=== PATIENT | female | born 1950 | race Caucasian/White ===

== ENCOUNTER → 2020-04-19 | Outpatient (CLI) | payer OTHER ==
[~2020-04-19] MED LIST: AMARYL4 MG PO; AMITRIPTYLINE H25 M2 PO; ASPIR 8181 MG PO; ASPIRIN325 PO; ASPIRIN81 M2 PO; CIPRO500 MG PO; COLACE100 MG PO; GLUCOPHAGE1000 MG PO; HYDROCHLOROTHIA25 M2 PO; HYDROCODONE-AP1 EAC6 PO; NAPROSYN500 MG PO; NORCO 10-325 T1 EACH PO; OXYCODONE HCL5 M1 PO; OXYCONTIN10 M1 PO; PRILOSEC 20 MG20 MG PO; PROPRANOLOL 8080 MG PO; WOMAN'S LAXATIVE5 M1 PO; XARELTO10 M1 PO; XARELTO10 MG PO
--- NOTE | 2020-05-02 18:07 | PATH ---
[address] [address] PATHOLOGY RPT PROCEDURE Name: HEIDI FALL Room: [facility] Hanh#: [id number] Admission: 04/19/20 Date of : 48 Discharge: Report #: [id number] Path Case #: [id number] [facility] Accession Number: [id number] . 01 Material submitted: . PART A: breast - RIGHT BREAST 1:00 13CM FROM NIPPLE. Modifiers: right, 1:00 PART B: breast - RIGHT BREAST 4:00 6CM FROM NIPPLE. Modifiers: right, 4:00 PART C: axillary tail of breast - RIGHT AXILLARY LYMPH NODE. Modifiers: right . 01 Clinical history: . A. 4.38 x 4.77 x 3.10 cm, 1:00, 13 cm from nipple B. 2.80 x 2.88 x 1.59 cm, 4:00, 6 cm from nipple C. 3.32 x 3.33 x 1.97 cm lymph node . 02 Diagnosis: A. Right breast, 1:00, 13 cm from nipple, image-guided core biopsies: - INFILTRATING DUCTAL ADENOCARCINOMA, HIGH GRADE, SPANNING AT LEAST 6 MM, WITH PROMINENT LYMPHOPLASMACYTIC RESPONSE. SEE COMMENT. . B. Right breast, 4:00, 6 cm from nipple, image-guided core biopsies: - INFILTRATING DUCTAL ADENOCARCINOMA, HIGH GRADE, SPANNING AT LEAST 12 MM, WITH PROMINENT LYMPHOPLASMACYTIC RESPONSE. SEE COMMENT. . C. Right axillary lymph node, image-guided core biopsies: - METASTATIC HIGH-GRADE CARCINOMA [facility] DUCTAL PRIMARY INVOLVING LYMPHOID TISSUE AND SPANNING AT LEAST 12 MM. SEE COMMENT. (DANIEL:adrien; 04/21/2020) [facility] [place] 04/21/2020 1043 Local . 02 Comment: A. Specimen type: Image-guided core biopsy Tumor site: Right breast, 1:00, 13 cm from nipple Tumor quantitation: Approximately 100% of submitted tissues Histologic type: Infiltrating ductal adenocarcinoma Histologic grade: III of III Tubules, nuclei and mitoses: 3, 3, 3 LVSI: Not identified Microcalcifications: Not identified Markers: Breast tumor profile pending Block: A1 . . B. Specimen type: Image-guided core biopsy Tumor site: Right breast, 4:00, 6 cm from nipple Tumor quantitation: Approximately 95% of submitted tissues Histologic type: Ductal adenocarcinoma Histologic grade: [place] [address] PATHOLOGY RPT PROCEDURE Name: HEIDI FALL Room: [facility] Schafer#: [id number] Admission: 04/19/20 Date of : 48 Discharge: Report #: [id number] Path Case #: [id number] Tubules, nuclei and mitoses: 3, 3, 3 LVSI: Not identified Microcalcifications: Not identified Markers: Not performed . . Properly controlled E-cadherin and keratin RADHA immunohistochemical studies are performed on both A1 and B1 and the neoplastic cells are positive for all stains, supporting the classification. Both tumors show a prominent lymphoplasmacytic response and appear histologically identical. The tumor seen in the right axillary lymph node (C) also appears histologically identical and there is minimal residual lymphoid tissue with a suggestion of a capsule at each ends of a core in C1, such that tumor appears to essentially efface the entire lymph node. No obvious extranodal involvement is identified, although it cannot be excluded. Breast tumor profile studies are pending on A1 and will be the subject of an addendum report. If breast tumor profile studies are desired on other specimens they can be performed on any of the remaining specimen tissue blocks. Specimens A, B and C reviewed with Dr. Mikel Mchugh, who agrees with diagnoses. Kari (acting [facility] Breast Navigator) notified at approximately 1120 on 04/21/2020. . (DANIEL:adrien; 04/21/2020) . 02 Addendum: . Special studies report received from [facility], [address] [place] [address], [address], [place], [address], on case [id number], labeled with their number [id number], dated 04/29/2020. . Breast/Prognostic Marker Analysis . Specimen Site: Rt Breast, 1:00, 13 Cm FN, Image-Guided Core Biopsies, Breast Cancer Specimen ID #: [id number] . ER (Estrogen Receptor) Absent/Negative Percent: 0.00 Analysis: Manual . MN (Progesterone Receptor) Absent/Negative Percent: 0.00 Analysis: Manual . HER2 Not Over-Expressed Score: 1+ Analysis: [place] [address] PATHOLOGY RPT PROCEDURE Name: HEIDI FALL Room: [facility]#: [id number] Admission: 04/19/20 Date of : 48 Discharge: Report #: [id number] Path Case #: [id number] . Ki-67 High Proliferation Percent: 80.00% Analysis: Manual . Time to Fixation (Cold Ischemic Time): 1 minute Duration of Fixation: 6 to 72 Hours Type of Fixative: 10% Neutral Buffered Formalin . . Comments: ER/PgR testing at [facility]. is performed in compliance with the ASCO/CAP Clinical Practice Guidelines. If the result for ER is less than 1% it is reported as Negative; if the ER result is 1-10% it is reported as Low Positive; if the ER result is greater than 10% it is reported as Positive. If the result for PgR is less than 1% it is reported as Negative; if the PgR result is equal to or greater than 1%, it is reported as Positive. . REF: Debora KH, Suellen CLARKE, et al: Estrogen and Progesterone Receptor Testing in Breast Cancer. ASCO/CAP Guideline Update. DOI 10.5858/arpa.2121-4764-UR. . Whole slide image capture is performed using [employer] (8Trip) platform. Image analysis, if ordered, is performed using Pict[employer].us software. . at [facility]. Srinivas Peña MD Pathologist . Methodology The HER2 Receptor protein expression is analyzed using the [place] HER2 rabbit monoclonal antibody (clone 4B5). This assay is used for diagnostic determination of the HER2 protein over-expression in paraffin embedded, formalin fixed breast cancer tissue on the [place] Benchmark. The specimen is processed using a secondary antibody-HRP conjugate detection system. The membrane staining of the tumor is determined either by manual score or image analysis. This antibody is intended for in vitro diagnostic use. The score is reported as 0, 1+, 2+, or 3+. This test is used for clinical purposes. . A rabbit monoclonal antibody (clone SP1) that recognized the Estrogen Receptor is used to perform immunohistochemistry on routinely fixed (formalin) paraffin embedded tissue on the [place] Benchmark. The specimen is processed using a secondary antibody-HRP conjugate detection system. The percentage of stained tumor nuclei is determined [place] [address] PATHOLOGY RPT PROCEDURE Name: HEIDI FALL Room: [facility] SHAHLA Schafer#: [id number] Admission: 04/19/20 Date of : 48 Discharge: Report #: [id number] Path Case #: [id number] image analysis. This test is intended for in vitro diagnostic use. This test is used for clinical purposes. . A rabbit monoclonal antibody (clone 1E2) that recognized the Progesterone Receptor is used to perform immunohistochemistry on routinely fixed (formalin) paraffin embedded tissue on the [place] Benchmark. The specimen is processed using a secondary antibody-HRP conjugate detection system. The percentage of stained tumor nuclei is determined either manually or by image analysis. This test is intended for in vitro diagnostic use. This test is used for clinical purposes. . A rabbit monoclonal antibody (clone 30-9) that recognized Ki67 is used to perform immunohistochemistry on routinely fixed (formalin) paraffin embedded tissue on the [employer] Benchmark. The specimen is processed using a secondary antibody-HRP conjugate detection system. The percentage of stained tumor nuclei is determined either manually or by image analysis. This test is intended for in vitro diagnostic use. This test is used for clinical purposes. . Intended Use: This antibody is intended for in vitro diagnostic (IVD) use. HER2 (4B5) is a rabbit monoclonal antibody intended for the semi-quantitative detection of HER2 antigen in sections of formalin-fixed, paraffin embedded normal and neoplastic tissue. . This antibody is intended for in vitro diagnostic (IVD) use. Estrogen Receptor (ER) (SP1) is a rabbit monoclonal antibody (IgG) that is intended for the qualitative detection of estrogen receptor (ER) antigen in sections of formalin-fixed, paraffin-embedded tissue. ER is a rabbit monoclonal antibody that recognizes human estrogen receptor alpha. . This antibody is intended for in vitro diagnostic (IVD) use. Progesterone Receptor (MN) (1E2) is a rabbit monoclonal antibody (IgG) that is intended for the qualitative detection of progesterone receptor (MN) antigen in sections of formalin fixed, paraffin embedded tissue. MN is a rabbit monoclonal antibody that recognizes the A and B forms of the human progesterone receptor. . This antibody is intended for in vitro diagnostic (IVD) use. Ki-67 (30-9) is a rabbit monoclonal antibody (IgG) directed against C-terminal portion of Ki-67 antigen. Staining for Ki-67 can be used to aid in assessing the proliferative activity of normal and neoplastic tissue. Ki-67 is a nuclear protein expressed in proliferating cells. During the cell cycle, the Ki-67 antigen is present in the G1, S, G2 and M phase but is absent in the G0 (quiescent phase). . . Disclaimer: This Test was performed by [facility] at [address] [place] [address] PATHOLOGY RPT PROCEDURE Name: HEIDI FALL Room: YOLIS Schafer#: [id number] Admission: 04/19/20 Date of : 48 Discharge: Report #: [id number] Path Case #: [id number] [address] [place] [address], [address]. . [facility] is a business unit of [facility]. a wholly-owned subsidiary of [employer]. . This assay has not been validated on decalcified tissues. Results should be interpreted with caution if this specimen was decalcified given the likelihood of false negativity on decalcified specimens. . Any image(s) that accompany this report is/are a front desk representative image(s) only and should not be used to render a diagnosis. . This interpretation is contingent on the specimen and the clinical information received. . For any special tests/stains performed, known positive cells or tissues are tested with each marker and examined to ensure positivity. Positive and negative internal controls, if present, react appropriately. . This analysis is an adjunct to the evaluation of the referring physician and does not represent a final diagnosis. . The immunohistochemistry tests performed at [facility]. were validated on tissue fixed in 10% neutral buffered formalin. The performance characteristics of the tests performed on tissue processed in other fixatives is not known. . HER2 testing at [facility]., is performed in compliance with the 2018 updated ASCO/CAP Clinical Practice Guideline Focused Update. If the result is EQUIVOCAL (2+), it must be confirmed by an alternative assay such as FISH or Dual MAKI. REF: Kandice NORRIS, VINCE Ken et al: Human Epidermal Growth Factor Receptor 2 Testing in Breast Cancer: ASCO/CAP Clinical Practice Guideline Focused Update. J Clin Oncol 36:1330-9949, 2018. . HER2 and ER/MN ASCO/CAP guidelines require fixation in neutral buffered formalin for a minimum of 6 and a maximum of 72 hours. Fixation times less than 6 hours may not adequately preserve cell proteins. Fixation times longer than 72 hours may cause excess cross-linking of proteins reducing the antigen available for staining. Either scenario can cause reduced staining; hence false negative results are possible and should be considered for these situations if the HER2 IHC score is less than 3+ or ER or MN is negative (no staining or <1% positive). It is recommended that specimens fixed longer than 72 hours with HER2 IHC scores less than 3+ be confirmed by HER2 FISH or Dual MAKI. The time from biopsy/excision to fixation in formalin (cold ischemic time) must be less than 1 hour. Time to fixation (cold ischemic time) greater than 1 hour should be interpreted with caution. HER2 testing, mainly HER2 by FISH, [place] [address] PATHOLOGY RPT PROCEDURE Name: CLAUDETTE FALLDRA Nathaniel Room: [facility]#: [id number] Admission: 04/19/20 Date of : 48 Discharge: Report #: [id number] Path Case #: [id number] vulnerable since excessive cold ischemic time results in preferential loss of HER2 probe signals that may lead to false negative results. . SCORE STAINING PATTERN IN TUMOR CELLS INTERPRETATION RESULTS 0 No staining observed or incomplete, faint membrane staining in less than or equal to 10% of tumor cells. Negative 1+ Incomplete, faint membrane staining in greater than 10% of tumor cells. Negative 2+ Weak to moderate complete membrane staining observed in greater than 10% of tumor cells. Equivocal* *Must be confirmed by alternative assay (IHC/FISH/Dual MAKI) 3+ Intense, complete membrane staining in greater than 10% of tumor cells. Positive . A complete copy of the report is on file. . Professional and Technical services performed by [facility] at [address] [place] [address]. . (DANIEL:amj 05/02/2020) . MBR/05/02/2020 Addendum Electronically Signed by Haider Shearer MD, Pathologist . 02 Electronically signed: . Haider Shearer MD, Pathologist NPI- [id number] . 01 Gross description: . A. The specimen is received in formalin labeled "Heidi Fall, right breast 1:00 13 cm FN" and consists of multiple fibroadipose breast needle cores measuring from 0.2 cm to 1.2 cm in length and 0.2 cm in diameter. They were collected at 10:11 AM and placed in formalin at 10:12 AM. The cold ischemic time is 1 minute and the total time in formalin is greater than 6 hours and less than 72. They are entirely submitted in A1-A3. . B. The specimen is received in formalin labeled "Heidi Fall, right breast 4:00 6 cm FN" and consists of 3 fibroadipose breast needle cores measuring from 1.6-1.9 cm in length and 0.2 cm in diameter. They were collected at 10:16 AM and placed in formalin at 10:18 AM. The cold ischemic time of 2 minutes and total time in formalin is greater than 6 hours and less than 72. They are entirely submitted in B1-[place] [address] PATHOLOGY RPT PROCEDURE Name: HEIDI FALL Room: [facility]#: [id number] Admission: 04/19/20 Date of : 48 Discharge: Report #: [id number] Path Case #: [id number] . C. The specimen is received in formalin labeled "Heidi Fall, right axillary node" and consists of 2 fibroadipose needle cores measuring 1.4 and 1.6 cm in length and 0.2 cm in diameter. They are collected at 10:27 AM in placed in formalin at 10:28 AM. The cold ischemic time is 1 minute and total time in formalin is greater than 6 hours and less than 72. They are entirely submitted in C1-C2. ([facility]; 04/19/2020) JFQ/JFQ 04/19/2020 1944 Local . 02 Pathologist provided ICD-10: C50.911, C77.3 . 02 CPT . 854702, 598639, 675791, X81019, S50920, 545017 Specimen Comment: A courtesy copy of this report has been sent to [phone] Specimen Comment: [phone], Specimen Comment: Report sent to ,DR NIEVES / DR GOODRICH Performed at: 01 [facility] [address] [address], [place], [place] [address] MD Fabrizio Beckwith MD Phone: [phone] Performed at: 02 [facility] [place] [address] [address] [place], [place] [id number] MD Haider Shearer MD Phone: [phone]
== END | disposition home or self-care (01) ==
LOC: M.ULTRA 08:20
PROVIDERS: ATTEND Family Medicine
DX: C50.911 Malignant neoplasm of unspecified site of right female breast (principal); C77.3 Secondary and unspecified malignant neoplasm of axilla and upper limb lymph nodes; R92.1 Mammographic calcification found on diagnostic imaging of breast; Z98.890 Other specified postprocedural states; Z79.899 Other long term (current) drug therapy; Z79.82 Long term (current) use of aspirin

== ENCOUNTER → 2020-04-27 | Outpatient (CLI) | payer OTHER ==
[2020-04-27 09:00] LABS: CREATININE 1.5 mg/dL (0.6-1.3)
== END ==
LOC: M.LAB 08:15 → M.MRI 09:15
PROVIDERS: ATTEND Surgery
DX: C50.911 Malignant neoplasm of unspecified site of right female breast (principal); C79.89 Secondary malignant neoplasm of other specified sites; N63.12 Unspecified lump in the right breast, upper inner quadrant; N63.14 Unspecified lump in the right breast, lower inner quadrant

== ENCOUNTER → 2020-05-13 | Outpatient (CLI) | payer OTHER | LOC: M.ULTRA 13:00 | PROVIDERS: ATTEND Internal Medicine Hematology & Oncology | DX: R60.0 Localized edema (principal); R52 Pain, unspecified ==

== ENCOUNTER → 2020-05-18 | Outpatient (CLI) | payer OTHER ==
--- NOTE | 2020-05-19 08:32 | 2DMMODE ---
[place] [address] 2 D/M-MODE ECHOCARDIOGRAM Name: RAJENDRA FALL Room: [facility]#: [id number] Admission: 05/18/20 Attend Phys: Jt Fitzgerald MD Discharge: Date of : 48 Date of Service: 05/19/20 0831 Report #: [id number] THIS REPORT FOR: cc: Owen Hackett Bradley L. DO Liston, Michael J. MD [facility] ~ APPROVED REPORT Study performed: 05/18/2020 15:14:53 EXAM: Comprehensive 2D, Doppler, and color-flow Echocardiogram Patient Location: Out-Patient BSA: 1.87 HR: 93 bpm BP: 140/78 mmHg Other Information Study Quality: Good Indications Chemo 2D Dimensions IVSd: 12.09 (7-11mm) LVOT Diam: 19.46 (18-24mm) LVDd: 37.26 mm PWd: 11.34 (7-11mm) Ascending Ao: 33.69 (22-36mm) LVDs: 24.13 (25-40mm) Aortic Root: 21.90 mm Volumes Left Atrial Volume (Systole) LA ESV Index: 11.30 mL/m2 Aortic Valve AoV Peak Gus.: 1.26 m/s AO Peak Gr.: 6.34 mmHg LVOT Max P.94 mmHg AO Mean Gr.: 3.14 mmHg LVOT Mean P.53 mmHg LVOT Max V: 1.22 m/s AO V2 VTI: 20.76 cm LVOT Mean V: 0.72 m/s ISELA (VTI): 2.72 cm2 LVOT V1 VTI: 18.96 cm Mitral Valve E/A Ratio: 0.58 [place] [address] 2 D/M-MODE ECHOCARDIOGRAM Name: RAJENDRA FALL Room: [facility]#: [id number] Admission: 05/18/20 Attend Phys: Jt Fitzgerald MD Discharge: Date of : 48 Date of Service: 05/19/20 0831 Report #: [id number] MV Decel. Time: 288.00 ms MV E Max Gus.: 0.60 m/s MV PHT: 83.52 ms MVA (PHT): 2.63 cm2 TDI E/Lateral E': 6.67 E/Medial E': 8.57 Medial E' Gus.: 0.07 m/s Lateral E' Gus.: 0.09 m/s Pulmonary Valve PV Peak Gus.: 1.24 m/s PV Peak Gr.: 6.14 mmHg Left Ventricle The left ventricle is normal size. There is normal LV segmental wall motion. There is normal left ventricular wall thickness. Left ventricular systolic function is normal. LVEF is 65-70%. Grade I - abnormal relaxation pattern. Right Ventricle The right ventricle is normal size. The right ventricular systolic function is normal. Atria The left atrium size is normal. The right atrium size is normal. Aortic Valve Mild aortic valve sclerosis. No aortic regurgitation is present. There is no aortic valvular stenosis. Mitral Valve Mild mitral annular calcification. There is no mitral valve regurgitation noted. No evidence of mitral valve stenosis. Tricuspid Valve The tricuspid valve is normal in structure. There is no tricuspid valve regurgitation noted. Pulmonic Valve The pulmonary valve is normal in structure. There is no pulmonic valvular regurgitation. Great Vessels The aortic root is normal in size. IVC is normal in size and collapses >50% [place] [address] 2 D/M-MODE ECHOCARDIOGRAM Name: RAJENDRA FALL Nathaniel Room: [facility]#: [id number] Admission: 05/18/20 Attend Phys: Jt Fitzgerald MD Discharge: Date of : 48 Date of Service: 05/19/20 0831 Report #: [id number] Pericardium There is no pericardial effusion. <Conclusion> The left ventricle is normal size. There is normal left ventricular wall thickness. Left ventricular systolic function is normal. LVEF is 65-70%. Grade I - abnormal relaxation pattern. IVC is normal in size and collapses >50% with inspiration. <ELECTRONICALLY SIGNED> By: Suleiman Sears MD, FACC 05/19/20830 0 0 Suleiman Sears MD, FACC /INF
== END ==
LOC: M.CRD 14:58
PROVIDERS: ATTEND Internal Medicine Hematology & Oncology
DX: I08.0 Rheumatic disorders of both mitral and aortic valves (principal); C50.919 Malignant neoplasm of unspecified site of unspecified female breast; Z17.1 Estrogen receptor negative status [ER-]

== ENCOUNTER → 2020-05-30 | Outpatient (CLI) | payer OTHER | LOC: M.ULTRA 09:30 | PROVIDERS: ATTEND Internal Medicine Hematology & Oncology | DX: C50.111 Malignant neoplasm of central portion of right female breast (principal); R59.0 Localized enlarged lymph nodes; N63.0 Unspecified lump in unspecified breast ==

== ENCOUNTER → 2020-07-20 | Outpatient (CLI) | payer OTHER | LOC: M.RAD 15:39 | PROVIDERS: ATTEND Internal Medicine Hematology & Oncology | DX: M19.011 Primary osteoarthritis, right shoulder (principal); C50.211 Malignant neoplasm of upper-inner quadrant of right female breast; R52 Pain, unspecified; Z17.1 Estrogen receptor negative status [ER-] ==

== ENCOUNTER → 2020-08-12 | Outpatient (CLI) | payer OTHER | LOC: M.ULTRA 08-11 10:30 | PROVIDERS: ATTEND Internal Medicine Hematology & Oncology | DX: C50.211 Malignant neoplasm of upper-inner quadrant of right female breast (principal); N63.11 Unspecified lump in the right breast, upper outer quadrant; N63.12 Unspecified lump in the right breast, upper inner quadrant; Z17.1 Estrogen receptor negative status [ER-] ==

== ENCOUNTER → 2020-08-22 | Outpatient (CLI) | payer OTHER | LOC: M.ULTRA 12:00 | PROVIDERS: ATTEND Internal Medicine Hematology & Oncology | DX: M79.89 Other specified soft tissue disorders (principal) ==